=== PATIENT | female | born 2000 | race Caucasian/White ===

== ENCOUNTER 2020-09-20 07:10 | Inpatient (IN) | payer BC, OTHER ==
[2020-09-20] VITALS (42 sets, daily range): BP systolic 108–156; BP diastolic 55–87
[~2020-09-20] VITALS: Ht 177.8 cm; Wt 124.0 kg
--- NOTE | 2020-09-20 07:16 | NUR ---
BURTON CASON presented to unit via ambulatory from home, accompanied by s/o, for induction of labor. BURTON CASON weighed, gowned, voided, and to bed. EFHM and TOCO applied, VS taken. BURTON CASON oriented to bed controls, call light, TV, heat, and A/C controls.
[2020-09-20] MEDS ORDERED: D5 LR IV SOLUTION 1,000 ML IV SCH (07:48)
[2020-09-20] MEDS ORDERED: OXYTOCIN PRE-MIX DRIP 500 ML IV SCH ×2 (07:48→17:12)
--- NOTE | 2020-09-20 07:58 | History & Physical ---
History and Physical Date Seen by Provider: Sep 20, 2020 Time Seen by Provider: 07:54 this patient is a 20-year-old 1 white female with a due date of October 02, 2020. She was seen in clinic yesterday and found to have blood pressures of 135/95 this was a significant increase from her previous blood pressures she also had 1+ proteinuria. Patient was admitted today for labor induction due to preeclampsia/PIH. Patient denies rupture membranes or bleeding she is having occasional contractions on presentation. Her GBS culture was positive after 35 weeks gestation and she will be on prophylactic antibiotics during labor Allergies are none Medications are vitamins Medical social and surgical histories are per the antepartum record HEENT exam is normal Neck is supple no lymphadenopathy no thyromegaly Abdomen is gravid soft nontender nondistended Extremities show no clubbing or cyanosis. There is no Homans sign. There is some pretibial pitting edema. There is no Homans sign Pelvic exam in clinic yesterday showed a cervix 2 cm dilated 50 percent effaced and very soft mid to anterior position vertex presentation with a -1 station. This gives a Lopez score of 8 Repeat pelvic exam is pending Assessment and plan term at 38-2/7 weeks' gestation with preeclampsia/PIH. Patient is admitted now for labor induction. We anticipate a vaginal delivery but would be prepared for if needed. 38 weeks gestation with PIH/preeclampsia Allergies and Home Medications Allergies Coded Allergies: No Known Drug Allergies (Unverified , 09/20/20) Patient Home Medication List Home Medication List Reviewed: Yes ISIDRO GASPAR MD Sep 20, 2020 07:58
[2020-09-20] MEDS ORDERED: AMPICILLIN FOR IV USE 2,000 MG in WATER (STERILE) FOR INJECTION 14.8 ML IV ONE (08:00)
[2020-09-20] MEDS ORDERED: AMPICILLIN 2,000 MG/14.8 ML (IV USE) ONE (08:04)
[2020-09-20] MEDS ORDERED: WATER (STERILE) FOR INJECTION 20 ML ONE (08:04)
[2020-09-20 08:22] LABS: BASOPHILS % (AUTO) 0 % (0-10); EOSINOPHILS # (AUTO) 0.1 10^3/uL (0.0-0.3); EOSINOPHILS % (AUTO) 1 % (0-10); HEMATOCRIT 34 % (35-52); HEMOGLOBIN 11.3 g/dL (11.5-16.0); LYMPHOCYTES # (AUTO) 2.7 10^3/uL (1.0-4.0); LYMPHOCYTES % (AUTO) 25 % (12-44); MEAN CORPUSCULAR HEMOGLOBIN 30 pg (25-34); MEAN CORPUSCULAR HGB CONC 33 g/dL (32-36); MEAN CORPUSCULAR VOLUME 90 fL (80-99); MEAN PLATELET VOLUME 11.2 fL (9.0-12.2); MONOCYTES # (AUTO) 0.8 10^3/uL (0.0-1.0); MONOCYTES % (AUTO) 7 % (0-12); NEUTROPHILS # (AUTO) 7.4 10^3/uL (1.8-7.8); NEUTROPHILS % (AUTO) 67 % (42-75); PLATELET COUNT 228 10^3/uL (130-400)
[2020-09-20 08:33] LABS: ALANINE AMINOTRANSFERASE 6 U/L (0-55); ALBUMIN 3.4 GM/DL (3.2-4.5); ALKALINE PHOSPHATASE 95 U/L (40-136); BILIRUBIN,TOTAL 0.3 MG/DL (0.1-1.0); BUN/CREATININE RATIO 13; CALCIUM 8.8 MG/DL (8.5-10.1); CARBON DIOXIDE 18 MMOL/L (21-32); CHLORIDE 106 MMOL/L (98-107); CREATININE SERUM 0.64 MG/DL (0.60-1.30); GFR ESTIMATED > 60; GLUCOSE 85 MG/DL (70-105); POTASSIUM 3.7 MMOL/L (3.6-5.0); SODIUM 138 MMOL/L (135-145); TOTAL PROTEIN 6.3 GM/DL (6.4-8.2); URIC ACID 5.9 MG/DL (2.6-7.2)
[2020-09-20] MEDS ORDERED: FLU QUADRIvalent (3YOA+) 60 mcg/0.5 ml 2020-21 (AFLURIA) IM ONE (09:45)
--- NOTE | 2020-09-20 10:13 | NUR ---
UPDATED ON RECENT SVE. NO NEW ORDERS RECEIVED.
[2020-09-20] MEDS ORDERED: fentaNYL 2 mcg/ml BUPIVA 0.125 100 ML ONE (10:31)
[2020-09-20] MEDS ORDERED: BUPIVACAINE 0.25% 30 ML (SENSORCAINE) VIAL ONE (10:44)
[2020-09-20] MEDS ORDERED: LIDOCAINE PF 2% 5 ML (XYLOCAINE) VIAL ONE (10:44)
[2020-09-20] MEDS ORDERED: fentaNYL INJECTION 100 MCG/2 ML AMP ONE (10:44)
[2020-09-20] MEDS ORDERED: LACTATED RINGERS 1,000 ML IV ONE ×2 (11:39)
[2020-09-20] MEDS ORDERED: fentaNYL INJECTION 100 MCG/2 ML AMP INJ ONE (11:45)
[2020-09-20] MEDS ORDERED: ONDANSETRON 4 MG/2 ML (SDV) Z0FRAN IV PRN (11:45)
[2020-09-20] MEDS ORDERED: EPIDURAL (fentaNYL 2 MCG/ML BUPIVA 0.125%)100 ML BAG EPI PRN (11:45)
[2020-09-20] MEDS ORDERED: NALOXONE 0.4 MG/ML 1 ML (NARCAN) VIAL IV PRN (11:45)
[2020-09-20] MEDS ORDERED: AMPICILLIN FOR IV USE 1,000 MG in WATER (STERILE) FOR INJECTION 7.4 ML IV SCH (12:00)
[2020-09-20] MEDS ORDERED: WATER (STERILE) FOR INJECTION 10 ML ONE (12:01)
[2020-09-20] MEDS ORDERED: AMPICILLIN 1,000 MG VIAL (IV USE) ONE (12:01)
--- NOTE | 2020-09-20 13:36 | NUR ---
DR. GASPAR UPDATED ON RECENT SVE. NO NEW ORDERS RECEIVED.
[2020-09-20] MEDS ORDERED: LIDOCAINE/EPI 2% 1:200,00 (XYLOCAINE) 10 ML VIAL ONE ×2 (14:04)
--- NOTE | 2020-09-20 14:04 | NUR ---
DR. GASPAR NOTIFIED OF PT RECENT SVE. NO NEW ORDERS RECEIVED.
[2020-09-20] MEDS ORDERED: BENZOCAINE/MENTHOL (DERMOPLAST) 60 ML CAN TP ONE (16:42)
--- NOTE | 2020-09-20 16:50 | NUR ---
EPIDURAL CATHETER REMOVED. TIP INTACT.
--- NOTE | 2020-09-20 17:00 | NUR ---
PT UP TO BATHROOM AND VOIDING. +PERICARE AND LINENS CHANGED. PT TRANSFERRED FROM [id number] TO [id number] VIA WHEEL CHAIR IN STABLE CONDITION ACCOMPANIED BY THIS RN, FOB, AND . CALL LIGHT WITHIN REACH. NO FURTHER NEEDS AT THIS TIME.
[2020-09-20] MEDS ORDERED: TETANUS,DIPTH,PERTUSS P/F (BOOSTRIX) 0.5 ML VIAL IM ONE (17:15)
[2020-09-20] MEDS ORDERED: MEASLES,MUMPS,RUBELLA 1 EA INJ SC ONE (17:15)
[2020-09-20] MEDS ORDERED: ONDANSETRON 4 MG/2 ML (SDV) Z0FRAN IVP PRN (17:15)
[2020-09-20] MEDS ORDERED: BENZOCAINE/MENTHOL (DERMOPLAST) 60 ML CAN TP PRN (17:15)
[2020-09-20] MEDS ORDERED: oxyCODONE/APAP 5/325MG (PERCOCET 5) TABLET PO PRN (17:30)
[2020-09-20] MEDS: ACETAMINOPHEN 500 MG TAB (TYLENOL) PO PRN (20:20)
[2020-09-20] MEDS: DOCUSATE SODIUM 100 MG (COLACE) CAP PO SCH (20:20)
[2020-09-21 01:52] VITALS: BP 108/54
[2020-09-21] MEDS: ACETAMINOPHEN 500 MG TAB (TYLENOL) PO PRN ×3 (05:13→21:47)
[2020-09-21 05:15] VITALS: BP 141/91
--- NOTE | 2020-09-21 06:38 | Anesthesia-Regional Post-Op ---
Regional Patient Condition Mental Status: Alert, Oriented x3 Circulation: Same as Pre-Op Headache: Absent Sensation: Full Recovery Motor Block: Absent Post Op Complications Complications None Follow Up Care/Instructions Patient Instructions None needed. Anesthesia/Patient Condition Patient is doing well, no complaints, stable vital signs, no apparent adverse anesthesia problems. No complications reported per nursing. D/C home per [facility] Criteria: No JEFFERY BOLIVAR CRNA Sep 21, 2020 06:37
[2020-09-21 08:39] VITALS: BP 120/60
--- NOTE | 2020-09-21 10:09 | Progress Note ---
Standard Progress Note Progress Notes/Assess & Plan Date Seen by a Provider: Sep 21, 2020 Time Seen by a Provider: 10:08 Progress/Assessment & Plan this patient is without complaint. She is ambulating, voiding, tolerating oral intake well has good pain control Vital Signs Date Time Temp Pulse Resp B/P (MAP) Pulse Ox O2 Delivery O2 Flow Rate FiO2 09/21/20 08:39 36.5 80 18 120/60 (80) 98 Room Air 09/21/20 05:15 36.3 91 18 141/91 (108) 96 Room Air 09/21/20 01:52 36.2 87 18 108/54 (72) 96 Room Air 09/20/20 21:00 37.0 92 18 144/79 (100) 97 Room Air 09/20/20 16:24 112 18 121/61 (81) Room Air 09/20/20 16:09 37.0 121 18 142/79 (100) Room Air 09/20/20 15:54 97 18 140/75 (96) Room Air 09/20/20 15:39 104 18 150/69 (96) Room Air 09/20/20 15:24 103 18 152/79 (103) Room Air 09/20/20 15:09 113 18 142/71 (94) Room Air 09/20/20 14:54 105 18 145/80 (101) Room Air 09/20/20 14:25 90 18 154/81 (105) Room Air 09/20/20 14:10 93 18 147/83 (104) Room Air 09/20/20 13:40 74 18 108/55 (72) Room Air 09/20/20 13:23 36.5 81 18 135/60 (85) Room Air 09/20/20 13:10 79 18 151/66 (94) Room Air 09/20/20 12:57 80 18 148/70 (96) Room Air 09/20/20 12:40 81 18 145/81 (102) Room Air 09/20/20 12:25 73 18 130/73 (92) Room Air 09/20/20 12:06 72 18 127/70 (89) Non Rebreather 15.00 09/20/20 12:02 75 18 134/73 (93) Non Rebreather 15.00 09/20/20 11:48 69 18 137/63 (87) 98 Non Rebreather 15.00 09/20/20 11:43 90 18 147/74 (98) 98 Non Rebreather 15.00 09/20/20 11:39 84 18 143/74 (97) 98 Room Air 09/20/20 11:37 78 18 133/71 (91) 98 Room Air 09/20/20 11:33 88 18 130/62 (84) 98 Room Air 09/20/20 11:30 94 18 138/67 (90) 98 Room Air 09/20/20 11:27 80 18 130/69 (89) 98 Room Air 09/20/20 11:25 98 18 129/71 (90) 99 Room Air 09/20/20 11:21 87 18 129/74 (92) 99 Room Air 09/20/20 11:17 83 18 128/68 (88) 99 Room Air 09/20/20 11:13 105 18 131/76 (94) 99 Room Air 09/20/20 11:10 103 18 126/75 (92) 99 Room Air 09/20/20 11:06 103 18 156/86 (109) 99 Room Air 09/20/20 11:03 107 18 146/87 (106) 97 Room Air 09/20/20 11:00 100 18 145/86 (105) 97 Room Air 09/20/20 10:53 87 18 135/81 (99) 99 Room Air 09/20/20 10:51 107 18 134/86 (102) 99 Room Air 09/20/20 10:34 36.6 75 18 150/87 (108) Room Air 09/20/20 10:20 68 18 141/86 (104) Room Air I & O 09/21/20 07:00 Intake Total 1022.2 ml Balance 1022.2 ml Vital signs are stable. Patient is afebrile. Blood pressure seemed to be normalizing. the abdomen is benign. Fundus is firm below the umbilicus and nontender. Extremities show no clubbing cyanosis. There is no Homans sign. assessment and plan post day number 1 status post term spontaneous vaginal delivery at 38+ weeks gestation. Patient is doing well and will have routine convalescence care today and likely discharge home tomorrow Final Diagnosis 39 week spontaneous vaginal delivery ISIDRO GASPAR MD Sep 21, 2020 10:09
[2020-09-21] MEDS ORDERED: IBUP-1780 PO (10:11)
[2020-09-21] MEDS ORDERED: DCS100C PO (10:11)
[2020-09-21] MEDS ORDERED: OXYC1TAB87 PO (10:11)
--- NOTE | 2020-09-21 10:11 | Discharge Inst-Surgical ---
Discharge Inst-Surgical Depart Medication/Instructions New, Converted or Re-Newed RX: RX on Chart Consults/Follow Up Patient Instructions: as directed Orders & Referrals Follow Up Appt: Call to make follow up appt. for patient in 4 weeks. Activity Per routine post vaginal delivery instructions. Please call in RX to patient pharmacy. Diet as tolerated Patient may shower or tub bathe as desired. Activity Activity as Tolerated: No Diet Discharge Diet: No Restrictions ISIDRO GASPAR MD Sep 21, 2020 10:11
[2020-09-21 13:24] VITALS: BP 155/88
[2020-09-21] MEDS: IBUPROFEN 800 MG (MOTRIN) TAB PO SCH (16:41)
[2020-09-21 16:42] VITALS: BP 134/85
[2020-09-21 21:45] VITALS: BP 158/74
[2020-09-21] MEDS: DOCUSATE SODIUM 100 MG (COLACE) CAP PO SCH (21:54)
[2020-09-22] MEDS: IBUPROFEN 800 MG (MOTRIN) TAB PO SCH ×3 (00:31→08:08)
[2020-09-22 03:14] VITALS: BP 136/82
--- NOTE | 2020-09-22 07:51 | Progress Note ---
Standard Progress Note Progress Notes/Assess & Plan Date Seen by a Provider: Sep 22, 2020 Time Seen by a Provider: 07:49 Progress/Assessment & Plan this patient is without complaint. She is ambulating, voiding, tolerating oral intake well has good pain control Vital Signs Date Time Temp Pulse Resp B/P (MAP) Pulse Ox O2 Delivery O2 Flow Rate FiO2 09/21/20 08:39 36.5 80 18 120/60 (80) 98 Room Air 09/21/20 05:15 36.3 91 18 141/91 (108) 96 Room Air 09/21/20 01:52 36.2 87 18 108/54 (72) 96 Room Air 09/20/20 21:00 37.0 92 18 144/79 (100) 97 Room Air 09/20/20 16:24 112 18 121/61 (81) Room Air 09/20/20 16:09 37.0 121 18 142/79 (100) Room Air 09/20/20 15:54 97 18 140/75 (96) Room Air 09/20/20 15:39 104 18 150/69 (96) Room Air 09/20/20 15:24 103 18 152/79 (103) Room Air 09/20/20 15:09 113 18 142/71 (94) Room Air 09/20/20 14:54 105 18 145/80 (101) Room Air 09/20/20 14:25 90 18 154/81 (105) Room Air 09/20/20 14:10 93 18 147/83 (104) Room Air 09/20/20 13:40 74 18 108/55 (72) Room Air 09/20/20 13:23 36.5 81 18 135/60 (85) Room Air 09/20/20 13:10 79 18 151/66 (94) Room Air 09/20/20 12:57 80 18 148/70 (96) Room Air 09/20/20 12:40 81 18 145/81 (102) Room Air 09/20/20 12:25 73 18 130/73 (92) Room Air 09/20/20 12:06 72 18 127/70 (89) Non Rebreather 15.00 09/20/20 12:02 75 18 134/73 (93) Non Rebreather 15.00 09/20/20 11:48 69 18 137/63 (87) 98 Non Rebreather 15.00 09/20/20 11:43 90 18 147/74 (98) 98 Non Rebreather 15.00 09/20/20 11:39 84 18 143/74 (97) 98 Room Air 09/20/20 11:37 78 18 133/71 (91) 98 Room Air 09/20/20 11:33 88 18 130/62 (84) 98 Room Air 09/20/20 11:30 94 18 138/67 (90) 98 Room Air 09/20/20 11:27 80 18 130/69 (89) 98 Room Air 09/20/20 11:25 98 18 129/71 (90) 99 Room Air 09/20/20 11:21 87 18 129/74 (92) 99 Room Air 09/20/20 11:17 83 18 128/68 (88) 99 Room Air 09/20/20 11:13 105 18 131/76 (94) 99 Room Air 09/20/20 11:10 103 18 126/75 (92) 99 Room Air 09/20/20 11:06 103 18 156/86 (109) 99 Room Air 09/20/20 11:03 107 18 146/87 (106) 97 Room Air 09/20/20 11:00 100 18 145/86 (105) 97 Room Air 09/20/20 10:53 87 18 135/81 (99) 99 Room Air 09/20/20 10:51 107 18 134/86 (102) 99 Room Air 09/20/20 10:34 36.6 75 18 150/87 (108) Room Air 09/20/20 10:20 68 18 141/86 (104) Room Air I & O 09/21/20 07:00 Intake Total 1022.2 ml Balance 1022.2 ml Vital signs are stable. Patient is afebrile. Blood pressure seemed to be normalizing. the abdomen is benign. Fundus is firm below the umbilicus and nontender. Extremities show no clubbing cyanosis. There is no Homans sign. assessment and plan post day number 1 status post term spontaneous vaginal delivery at 38+ weeks gestation. Patient is doing well and will have routine convalescence care today and likely discharge home tomorrow September 22, 2020 Patient is without COMPLAINT. She is ambulating, voiding, tolerating oral intake well has good pain control. Patient is requesting discharge home. Vital Signs Date Time Temp Pulse Resp B/P (MAP) Pulse Ox O2 Delivery O2 Flow Rate FiO2 09/22/20 03:14 36.4 78 18 136/82 (100) Room Air 09/21/20 21:45 36.7 80 18 158/74 (102) Room Air 09/21/20 16:42 36.5 80 18 134/85 (101) 97 Room Air 09/21/20 13:24 36.6 85 18 155/88 (110) 98 Room Air 09/21/20 08:39 36.5 80 18 120/60 (80) 98 Room Air vital signs are stable. Patient is afebrile. Fundus is firm below the umbilicus and nontender. Extremities show no clubbing or cyanosis. There is no Homans sign. Assessment and plan day number 2 status post term spontaneous vaginal delivery at 38 weeks gestation. Patient is doing well and will be discharged home Final Diagnosis 38 week spontaneous vaginal delivery ISIDRO GASPAR MD Sep 22, 2020 07:51
[2020-09-22 08:05] VITALS: BP 132/82
[2020-09-22] MEDS: DOCUSATE SODIUM 100 MG (COLACE) CAP PO SCH (08:08)
--- NOTE | 2020-09-22 09:00 | NUR ---
Discharge instructions given to pt at this time. Printed RX place din red folder, Other RX called to preferred pharmacy. Pt denies questions. Pt and SO understand that they are not to leave until after DC instructions are given for . Pt understands she is no longer a pt.
--- NOTE | 2020-10-02 19:42 | OPERATIVE REPORT ---
DATE OF SERVICE: 09/20/2020 DELIVERY NOTE The patient delivered by term spontaneous vaginal delivery. A viable male with Apgars of 9 and 9 at 1 and 5 minutes respectively, weight pending. time of 1450 and a cord blood pH that is pending as well. The patient delivered over a left sulcus laceration under epidural analgesia. The infant was bulb suctioned on delivery of the head and again on completion of delivery. The umbilical cord when pulseless was doubly clamped, father cut the cord, the baby was passed to mom's abdomen. Cord bloods were obtained. The placenta delivered spontaneously Richardson. It was normal with a 3-vessel cord. The cervix, vagina, rectum, and perineum were examined and found intact, except for the small left sulcus laceration that was repaired with a single suture of 3-0 Vicryl Rapide in the usual manner under local analgesia. The patient tolerated the delivery and the repair well and remained in the LDR for recovery. The baby remained with the mom. Sponge and needle counts were correct. Blood loss was around 200 mL. Job ID: [id number] DocumentID: [id number] Dictated Date: 10/02/2020 10:16:57 Cyber Security Systems Engineer Date: 10/02/2020 19:41:38 Dictated By: ISIDRO GASPAR MD
== END 2020-09-22 13:20 | disposition home or self-care (01) | DRG 807 ==
LOC: LDRP 07:10
PROVIDERS: ADMIT Obstetrics & Gynecology; ATTEND Obstetrics & Gynecology
PROC: 10E0XZZ Delivery of Products of Conception, External Approach (ICD-10-PCS; principal; 2020-09-21)
PROC: 0UQGXZZ Repair Vagina, External Approach (ICD-10-PCS; 2020-09-21)
DX: O11.4 Pre-existing hypertension with pre-eclampsia, complicating childbirth (principal); Z37.0 Single live birth; Z3A.38 38 weeks gestation of pregnancy; O71.89 Other specified obstetric trauma
CPT/HCPCS: 36415; 80053; 82570; 83615; 84156; 84550; 85025; 86850; 86900; 86901; 88307; 90686

== ENCOUNTER → 2023-07-07 | Outpatient (CLI) | payer BC, OTHER ==
[~2023-07-07] MED LIST: DOCU-239 PO; IBUP-1780 PO; OXYC1TAB87 PO
--- NOTE | 2023-07-07 12:39 | Diagnostic Imaging Report ---
INDICATION: survey. TECHNIQUE: Multiple real-time grayscale images were obtained over the gravid uterus. COMPARISON: None FINDINGS: There is a single live fetus in a cephalic presentation. heart rate was recorded at 166 bpm. Placenta is anterior. No previa is detected. Amniotic fluid index is 12.1 cm. survey demonstrates kidneys, bladder and stomach to be unremarkable. brains unremarkable. There is a four-chamber heart. There is a three-vessel cord with normal insertion. spine is unremarkable. Cervical length is approximately 3.9 cm. Maternal adnexa are unremarkable. Biometrical measurements are as follows: Biparietal 4.5 cm, age 19 weeks 5 days. Head circumference 18.5 cm, age 20 weeks 6 days. Abdominal circumference 14.5 cm, age 19 weeks 6 days. Femur length 3.2 cm, age 20 weeks 0 days. Sonographic estimate age: 20 weeks 1 days. Sonographic estimated date of delivery: 11/23/2023. Estimated Weight: 326 gm (+/- 1 gm). LMP percentile: 45%. heart rate: 166 beats per minute. number: 1 of 1. IMPRESSION: Single live IUP 20 weeks 1 day gestational age. Estimated date of confinement sonographically is 11/23/2023. No complicating features are detected. Dictated by: Dictated on workstation # [id number]
== END ==
LOC: RAD 10:15
PROVIDERS: ATTEND Obstetrics & Gynecology
DX: Z36.89 Encounter for other specified antenatal screening (principal); Z3A.20 20 weeks gestation of pregnancy
CPT/HCPCS: 76805

== ENCOUNTER 2023-11-01 21:10 | Inpatient (IN) | payer OTHER ==
[~2023-11-01] VITALS: Ht 174.5 cm; Wt 124.6 kg
[2023-11-01 21:58] LABS: AMORPHOUS SEDIMENT,UR MOD AMOR PHOSPHATE /LPF; BACTERIA,URINE FEW /HPF; BILIRUBIN,URINE NEGATIVE (NEGATIVE); CLARITY,URINE CLEAR; COLOR,URINE YELLOW; GLUCOSE, URINE (UA) NEGATIVE (NEGATIVE); KETONES,URINE NEGATIVE (NEGATIVE); LEUKOCYTE ESTERASE ,URINE NEGATIVE (NEGATIVE); NITRITE,URINE NEGATIVE (NEGATIVE); PROTEIN,URINE NEGATIVE (NEGATIVE); SQUAMOUS EPITHELIAL CELL,UR >50 /HPF; WBC,URINE 0-2 /HPF
[2023-11-01 22:00] VITALS: BP 128/82
[2023-11-02] VITALS (44 sets, daily range): BP systolic 78–141; BP diastolic 47–90
[2023-11-02] MEDS ORDERED: LACTATED RINGERS 1,000 ML 500 ML IV PRN
[2023-11-02] MEDS ORDERED: D5 LR 1,000 ML IV SOLN 1,000 ML IV SCH
[2023-11-02] MEDS ORDERED: MINERAL OIL 30 ML UDC TOP PRN
[2023-11-02 00:24] LABS: BASOPHILS % (AUTO) 0 % (0-10); EOSINOPHILS # (AUTO) 0.1 10^3/uL (0.0-0.3); EOSINOPHILS % (AUTO) 0 % (0-10); HEMATOCRIT 31 % (35-52); HEMOGLOBIN 10.4 g/dL (11.5-16.0); LYMPHOCYTES # (AUTO) 3.6 10^3/uL (1.0-4.0); LYMPHOCYTES % (AUTO) 32 % (12-44); MEAN CORPUSCULAR HEMOGLOBIN 31 pg (25-34); MEAN CORPUSCULAR HGB CONC 34 g/dL (32-36); MEAN CORPUSCULAR VOLUME 91 fL (80-99); MEAN PLATELET VOLUME 11.1 fL (9.0-12.2); MONOCYTES # (AUTO) 0.9 10^3/uL (0.0-1.0); MONOCYTES % (AUTO) 8 % (0-12); NEUTROPHILS # (AUTO) 6.8 10^3/uL (1.8-7.8); NEUTROPHILS % (AUTO) 60 % (42-75); PLATELET COUNT 206 10^3/uL (130-400); WHITE BLOOD COUNT 11.4 10^3/uL (4.3-11.0)
[2023-11-02] MEDS ORDERED: DESV50TA8 PO (01:34)
[2023-11-02] MEDS ORDERED: ASPI-999 PO (01:34)
[2023-11-02] MEDS ORDERED: PREN-142 PO (01:36)
[2023-11-02] MEDS ORDERED: BUTORPHANOL INJ 2 MG/ML VIAL IV ONE (04:15)
[2023-11-02] MEDS ORDERED: BUTORPHANOL INJ 2 MG/ML VIAL ONE (04:18)
[2023-11-02] MEDS ORDERED: CATHETER FLUSH 10 ML SYR IV SCH ×2 (06:00→14:00)
[2023-11-02] MEDS ORDERED: fentaNYL 2 mcg/ml BUPIVA 0.125 100 ML ONE (06:10)
[2023-11-02] MEDS ORDERED: NALOXONE 0.4 MG/ML 1 ML VIAL IV PRN ×4 (06:30→11:00)
[2023-11-02] MEDS ORDERED: CATHETER FLUSH 10 ML SYR IV PRN (06:30)
[2023-11-02] MEDS ORDERED: LACTATED RINGERS 1,000 ML 1,000 ML IV ONE (06:30)
[2023-11-02] MEDS ORDERED: fentaNYL 2 mcg/ml BUPIVA 0.125 100 ML EPI SCH ×2 (06:30→07:45)
[2023-11-02] MEDS ORDERED: fentaNYL INJECTION 100 MCG/2 ML VIAL ONE (06:51)
--- NOTE | 2023-11-02 06:56 | History & Physical-OB ---
OB - Chief Complaint & HPI Date/Time Date of Admission: Date of Admission: Nov 01, 2023 at 23:43 Time Seen by a Provider: 06:30 Chief Complaint/History OB-Reason for Admission/Chief: Onset of Labor Hx : 3 Hx Para: 2 Expected Date of Delivery: Nov 24, 2023 Gestational Age in Weeks: 36 Gestational Age in Days: 5 Other reason for admission: 23 year old at 36w5d presents with contractions. complicated by obesity and history of pre-eclampsia in previous . Overnight pt progressed from 2cm to 6cm dilatation Allergies and Home Medications Allergies Coded Allergies: ketorolac (Verified Allergy, Mild, HOT/HEADACHE, 09/20/20) tetracycline (Verified Allergy, Mild, RASH, 09/20/20) Patient Home Medication List Home Medication List Reviewed: Yes Aspirin (Aspirin) 81 Mg Tab.chew, 81 MG PO, (Reported) Entered as Reported by: TRAVIS BRITT on 11/02/23133 Last Action: New Order Desvenlafaxine (Desvenlafaxine ER) 50 Mg Tab.er.24h, 50 MG PO, (Reported) Entered as Reported by: TRAVIS BRITT on 11/02/23133 Last Action: New Order Vit No.124/Iron/FA ( Vitamin Tablet) 27 Mg Iron-800 Mcg Tablet, 1 EACH PO, (Reported) Entered as Reported by: TRAVIS BRITT on 11/02/23135 Last Action: New Order Discontinued Medications Docusate Sodium (Dok) 100 Mg Capsule, 100 MG PO BID Discontinued Reason: No Longer Taking Prescribed by: ISIDRO VUONG on 09/21/20 1011 Last Action: Discontinued Ibuprofen (Ibuprofen) 800 Mg Tablet, 800 MG PO Q6H PRN for PAIN Discontinued Reason: No Longer Taking Prescribed by: ISIDRO VUONG on 09/21/20 1011 Last Action: Discontinued Oxycodone HCl/Acetaminophen (Percocet 5-325 mg Tablet) 1 Each Tablet, 1 TAB PO Q4H PRN for PAIN-MODERATE (5-7) Discontinued Reason: No Longer Taking Prescribed by: ISIDRO VUONG on 09/21/20 1011 Last Action: Discontinued OB - History Hx of Present Care: Yes Obstetrical Complications: Other (history of pre-eclampsia) Medical Complications: None Information Induced Hypertension: No Maternal Gestational Diabetes: No Hemorrhage: No Obstetrical History Hx : 3 Hx Para: 2 Hx Termination: No Delivery History Adverse Rxn to Tranfusion: No Patient Past Medical History denies Social History/Family History Alcohol Use: Denies Use Recreational Drug Use: No 2nd Hand Smoke Exposure: No Immunizations Influenza Vaccine Up-to-Date: Yes; Up-to-Date OB - Admission Exam Physical Exam Vitals: Vital Signs 11/02/23 06:17 Temp 36.4 Pulse 75 Resp 18 B/P (MAP) 122/71 (88) Pulse Ox 99 O2 Delivery Room Air Abdomen: Non tender Extremities: Normal Cervical Dilatation: 6cm Effacement: 75% Station: -2 Amniotic Fluid: Clear Heart Rate: 120's Accelerations: Accelerations Present Short Term Variability: Present Contractions on Admission: 6-10 Minutes Apart Intensity: Moderate Labs Laboratory Tests Test 11/01/23 21:30 11/02/23 00:10 Range/Units Urine Color YELLOW Urine Clarity CLEAR Urine pH 7.0 5-9 Urine Specific [place] 1.020 1.016-1.022 Urine Protein NEGATIVE NEGATIVE Urine Glucose (UA) NEGATIVE NEGATIVE Urine Ketones NEGATIVE NEGATIVE Urine Nitrite NEGATIVE NEGATIVE Urine Bilirubin NEGATIVE NEGATIVE Urine Urobilinogen 0.2 < = 1.0 MG/DL Urine Leukocyte Esterase NEGATIVE NEGATIVE Urine RBC (Auto) NEGATIVE NEGATIVE Urine RBC NONE /HPF Urine WBC 0-2 /HPF Urine Squamous Epithelial Cells >50 H /HPF Urine Crystals PRESENT H /LPF Urine Amorphous Sediment MOD [place]YTON PHOSPHATE H /LPF Urine Bacteria FEW H /HPF Urine Casts NONE /LPF Urine Mucus SMALL H /LPF Urine Culture Indicated NO White Blood Count 11.4 H 4.3-11.0 10^3/uL Red Blood Count 3.38 L 3.80-5.11 10^6/uL Hemoglobin 10.4 L 11.5-16.0 g/dL Hematocrit 31 L 35-52 % Mean Corpuscular Volume 91 80-99 fL Mean Corpuscular Hemoglobin 31 25-34 pg Mean Corpuscular Hemoglobin Concent 34 32-36 g/dL Red Cell Distribution Width 12.9 10.0-14.5 % Platelet Count 206 130-400 10^3/uL Mean Platelet Volume 11.1 9.0-12.2 fL Immature Granulocyte % (Auto) 0 % Neutrophils (%) (Auto) 60 42-75 % Lymphocytes (%) (Auto) 32 12-44 % Monocytes (%) (Auto) 8 0-12 % Eosinophils (%) (Auto) 0 0-10 % Basophils (%) (Auto) 0 0-10 % Neutrophils # (Auto) 6.8 1.8-7.8 10^3/uL Lymphocytes # (Auto) 3.6 1.0-4.0 10^3/uL Monocytes # (Auto) 0.9 0.0-1.0 10^3/uL Eosinophils # (Auto) 0.1 0.0-0.3 10^3/uL Basophils # (Auto) 0.0 0.0-0.1 10^3/uL Immature Granulocyte # (Auto) 0.0 0.0-0.1 10^3/uL OB - Assessment/Plan/Diagnosis Assessment Assessment: active labor Admission Dx IUP at 36+ weeks GBS neg Pre-term labor Admission Status: Inpatient Order (span 2 midnights) Reason for Inpatient Admission: Labor Plan Plan: Other (AROM with clear fluid) JONATHAN VASQUEZ DO Nov 02, 2023 06:56
[2023-11-02] MEDS ORDERED: diphenhydrAMINE INJ 50 MG/ML VIAL IV PRN (07:45)
[2023-11-02] MEDS ORDERED: ONDANSETRON INJECTION 4 MG/2 ML (SDV) IV PRN (07:45)
[2023-11-02] MEDS ORDERED: LACTATED RINGERS 1,000 ML 1,000 ML IV SCH (07:45)
[2023-11-02] MEDS ORDERED: OXYTOCIN DRIP PRE-MIX 500 ML IV SCH ×2 (07:45→11:00)
[2023-11-02] MEDS ORDERED: METOCLOPRAMIDE INJ 10 MG/2 ML IV PRN (07:45)
--- NOTE | 2023-11-02 10:53 | OB Labor & Delivery Record ---
L&D History Date of Service Date of Service: Nov 02, 2023 History Expected Date of Delivery: Nov 24, 2023 Gestational Age in Weeks: 36 Hx : 3 Hx Para: 2 Complications Events: Routine care Operative Indications (Cesarea: N/A-Vaginal Delivery Intrapartal Events: None L&D Stage1 Stage One Onset of Labor - Date: Nov 02, 2023 Monitors and Tracing Monitor Mode: External Heart Rate: 125 Monitor Decelerations: None Station: -2 Supervisor Sample Preparation Variability: Average (6-10) Short Term Variability: Present Presentation: Vertex Vital Signs VS - Last 72 Hours, by Label 11/01/23 11/02/23 11/02/23 11/02/23 22:00 01:15 02:15 03:15 Temp 36.5 36.4 Pulse 90 73 81 96 Resp 18 16 16 16 B/P (MAP) 128/82 119/58 (78) 117/56 (76) 99/57 (71) Pulse Ox 99 O2 Delivery Room Air Room Air Room Air Room Air 11/02/23 11/02/23 11/02/23 11/02/23 06:17 06:34 06:47 06:54 Temp 36.4 Pulse 75 76 82 80 Resp 18 B/P (MAP) 122/71 (88) 126/80 (95) 126/83 (97) 141/90 (107) Pulse Ox 99 99 O2 Delivery Room Air Room Air 11/02/23 11/02/23 11/02/23 11/02/23 06:59 07:03 07:08 07:12 Pulse 93 105 96 92 Resp 18 18 18 B/P (MAP) 132/77 (95) 136/83 (100) 124/69 (87) 125/74 (91) Pulse Ox 99 99 99 100 O2 Delivery Room Air Room Air Room Air Room Air 11/02/23 11/02/23 11/02/23 11/02/23 07:14 07:20 07:24 07:40 Pulse 95 97 103 98 Resp 18 18 18 18 B/P (MAP) 126/68 (87) 119/66 (83) 118/65 (82) 118/71 (87) Pulse Ox 100 97 97 97 O2 Delivery Room Air Room Air Room Air Room Air 11/02/23 11/02/23 11/02/23 11/02/23 07:54 08:10 08:25 08:39 Temp 35.8 Pulse 88 85 77 78 Resp 18 18 18 18 B/P (MAP) 113/71 (85) 114/73 (87) 123/76 (92) 112/71 (85) Pulse Ox 96 98 100 99 O2 Delivery Room Air Room Air Room Air Room Air Rupture of Membranes Spontaneous Ruture of Membrane: Yes Amniotic Membrane Rupture Time: 0549 Amniotic Membrane Fluid Desc.: Clear Vaginal Bleeding Description: Normal Show Induction/Anesthesia Epidural Cath Placement - Time: 07 Progress/Notes Patient admitted by Dr. Baig in labor at 36.6 with SROM. SHe progressed to 4-5 cm when an epidural was requested. She then had low dose pitocin augmentation and progressed to complete and + 2 station. L&D Stage2 Stage Two Stage II Date: Nov 02, 2023 Monitors and Tracing Monitor Mode: External Heart Rate: 125 Monitor Decelerations: None Supervisor Sample Preparation Variability: Average (6-10) Short Term Variability: Present Position: Right Occiput Anterior Presentation: Vertex Cord Descript/Complications Cord Vessel Description: 3 Vessels Delivery Type Infant Delivery Method: Spontaneous Vaginal Anterior Shoulder: Right Episiotomy/Perineal Laceration Laceraction(s)/Extensions: No Condition of Infant Delivery 1 minute Comment: 8 5 minute Comment: 9 Notes Live female infant weight 7lbs 6 oz Condition of Infant Condition of Infant: Living Exam: No Observed Abnormalities Resuscitation Resuscitation: N/A - Spontaneous Resp L&D Stage3 Stage Three Stage III Date: Nov 02, 2023 Pictocin Pitocin Administration mu/min: 2 Pitocin ml/hr: 2 Pitocin Administration Comment: 30 mu wide open after delivery of placenta Placenta Delivery Placenta Delivery: Spontaneous Delivery Summary Summary Estimated blood loss (mL): 200 Attending at delivery: Cassie Price DO Condition of Delivery Examined: Cervix Examined, Uterus Explored Post Hemorrhage: No Condition of Mother stable Condition of (s) stable CASSIE PRICE DO Nov 02, 2023 10:53
--- NOTE | 2023-11-02 10:54 | Discharge Inst-Women's Service ---
Discharge Inst-Women's Serv Depart Medication/Instructions New, Converted or Re-Newed RX: Transmitted to Pharmacy Final Diagnosis PPD 1 NVD Problems Reviewed?: Yes Consults/Follow Up Additional Follow Up: Yes Orders/Referrals Dr. Jean in 6 weeks Activity Activity: Activity as Tolerated Driving Instructions: No Driving for 1 Week NO SMOKING: NO SMOKING Nothing Inside Vagina: No Douching, No [place], No Tampons Diet Discharge Diet: No Restrictions Symptoms to Report to : Bleeding Excessive, Pain Increased, Fever Over 101 Degrees F, Vaginal Bleeding Increase, Questions/Concerns For Any Problems or Questions: Contact Your Physician CASSIE PRICE DO Nov 02, 2023 10:54
[2023-11-02] MEDS ORDERED: DOCU100C37 PO (10:56)
[2023-11-02] MEDS ORDERED: ACET-93 PO (10:56)
[2023-11-02] MEDS ORDERED: FERR325T24 PO (10:56)
[2023-11-02] MEDS ORDERED: IBUP-844 PO (10:56)
[2023-11-02] MEDS ORDERED: DIBUCAINE 1% OINTMENT 28 GM TUBE TOP PRN (11:00)
[2023-11-02] MEDS ORDERED: Tetanus/Diphtheria/Pertussis (Acell) ADULT Vaccine 0.5 ML IM ONE (11:00)
[2023-11-02] MEDS ORDERED: MEASLES, MUMPS, RUBELLA VACCINE (MMR) SQ ONE (11:00)
[2023-11-02] MEDS ORDERED: WITCH HAZEL(TUCKS) 40 EA JAR TOP PRN (11:00)
[2023-11-02] MEDS ORDERED: BENZOCAINE/MENTHOL (DERMOPLAST) 56 ML CAN TP PRN (11:00)
[2023-11-02] MEDS: ACETAMINOPHEN 500 MG TABLET PO SCH ×2 (13:58→19:49)
[2023-11-02] MEDS: IBUPROFEN 600 MG TABLET PO SCH ×2 (13:59→19:49)
[2023-11-02] MEDS ORDERED: RHO(D) IMMUNE GLOBULIN 300 MCG/2 ML SYRINGE IM/IV NR (14:00)
[2023-11-02] MEDS: DOCUSATE SODIUM 100 MG CAPSULE PO SCH (19:48)
[2023-11-03 01:47] VITALS: BP 118/75
[2023-11-03] MEDS: IBUPROFEN 600 MG TABLET PO SCH ×2 (01:47→08:48)
[2023-11-03] MEDS: ACETAMINOPHEN 500 MG TABLET PO SCH ×2 (01:47→08:49)
[2023-11-03 05:45] VITALS: BP 115/66
[2023-11-03 06:11] LABS: BASOPHILS % (AUTO) 0 % (0-10); EOSINOPHILS # (AUTO) 0.1 10^3/uL (0.0-0.3); EOSINOPHILS % (AUTO) 1 % (0-10); HEMATOCRIT 30 % (35-52); HEMOGLOBIN 10.1 g/dL (11.5-16.0); LYMPHOCYTES # (AUTO) 3.7 10^3/uL (1.0-4.0); LYMPHOCYTES % (AUTO) 35 % (12-44); MEAN CORPUSCULAR HEMOGLOBIN 31 pg (25-34); MEAN CORPUSCULAR HGB CONC 33 g/dL (32-36); MEAN CORPUSCULAR VOLUME 92 fL (80-99); MONOCYTES # (AUTO) 0.8 10^3/uL (0.0-1.0); MONOCYTES % (AUTO) 8 % (0-12); NEUTROPHILS % (AUTO) 56 % (42-75); PLATELET COUNT 166 10^3/uL (130-400); WHITE BLOOD COUNT 10.7 10^3/uL (4.3-11.0)
[2023-11-03] MEDS ORDERED: PRENATAL VITAMIN TABLET PO SCH (07:00)
--- NOTE | 2023-11-03 08:17 | Postpartum Progress Note ---
Note Note Day # 1 Subjective: Patient is without complaints. Ambulating, voiding. Tolerating a regular diet without nausea or vomiting. Normal lochia. Pain is well controlled with oral pain medications. Objective: Physical Exam: General - Alert and oriented, no apparent distress Abdomen - Soft, appropriately tender to palpation, non-distended, fundus firm at umbilicus Extremities - no edema, negative Danilo's bilaterally Assessment: PPD 1 NVD Acute blood loss anemia Plan: Routine care. Encourage breast feeding. Encourage ambulation. Ferrous sulfate supplementation. Plan for discharge today Vitals - Labs Vital Signs - I&O Vital Signs Date Time Temp Pulse Resp B/P (MAP) Pulse Ox O2 Delivery O2 Flow Rate FiO2 11/03/23 05:45 36.5 71 18 115/66 (82) 100 Room Air 11/03/23 01:47 36.5 69 18 118/75 (89) 97 Room Air 11/02/23 19:49 35.9 63 18 132/68 (89) 99 Room Air 11/02/23 15:48 36.4 73 18 122/77 (92) 97 Room Air 11/02/23 13:54 91 18 116/60 (78) Room Air 11/02/23 13:39 93 18 132/73 (92) Room Air 11/02/23 13:24 75 18 133/74 (93) Room Air 11/02/23 13:09 75 18 129/75 (93) Room Air 11/02/23 12:54 85 18 130/71 (90) Room Air 11/02/23 12:39 80 18 137/61 (86) Room Air 11/02/23 12:24 82 18 136/77 (96) Room Air 11/02/23 12:11 77 18 133/73 (93) Room Air 11/02/23 12:09 74 18 134/76 (95) Room Air 11/02/23 11:54 77 18 116/69 (85) Room Air 11/02/23 11:47 36.4 11/02/23 11:39 36.4 83 18 130/73 (92) Room Air 11/02/23 11:24 36.6 88 18 137/64 (88) Room Air 11/02/23 11:11 78 18 116/59 (78) Room Air 11/02/23 10:54 36.5 80 18 128/70 (89) Room Air 11/02/23 10:48 36.5 11/02/23 10:40 129 18 141/79 (99) Room Air 11/02/23 10:25 83 18 133/77 (95) 100 Room Air 11/02/23 10:15 36.1 11/02/23 10:10 73 18 95/51 (66) 97 Room Air 11/02/23 09:55 72 18 88/51 (63) 98 Room Air 11/02/23 09:40 76 18 79/47 (58) 98 Room Air 11/02/23 09:29 73 18 86/51 (63) 99 Room Air 11/02/23 09:26 69 18 78/53 (61) 98 Room Air 11/02/23 09:09 78 18 106/64 (78) 97 Room Air 11/02/23 08:39 78 18 112/71 (85) 99 Room Air 11/02/23 08:25 77 18 123/76 (92) 100 Room Air I & O 11/03/23 07:00 Intake Total 500 ml Balance 500 ml Labs Laboratory Tests 11/03/23 06:01: White Blood Count 10.7, Red Blood Count 3.30L, Hemoglobin 10.1L, Hematocrit 30L, Mean Corpuscular Volume 92, Mean Corpuscular Hemoglobin 31, Mean Corpuscular Hemoglobin Concent 33, Red Cell Distribution Width 12.9, Platelet Count 166, Mean Platelet Volume 11.0, Immature Granulocyte % (Auto) 0, Neutrophils (%) (Auto) 56, Lymphocytes (%) (Auto) 35, Monocytes (%) (Auto) 8, Eosinophils (%) (Auto) 1, Basophils (%) (Auto) 0, Neutrophils # (Auto) 6.0, Lymphocytes # (Auto) 3.7, Monocytes # (Auto) 0.8, Eosinophils # (Auto) 0.1, Basophils # (Auto) 0.0, Immature Granulocyte # (Auto) 0.0 CASSIE PRICE DO Nov 03, 2023 08:17
[2023-11-03 08:46] VITALS: BP 129/76
[2023-11-03] MEDS: DOCUSATE SODIUM 100 MG CAPSULE PO SCH (08:49)
[2023-11-03] MEDS ORDERED: FERROUS SULFATE 325 MG (IRON) TABLET PO SCH (09:00)
--- NOTE | 2023-11-03 10:29 | Anesthesia-Regional Post-Op ---
Regional Patient Condition Mental Status: Alert, Oriented x3 Circulation: Same as Pre-Op Headache: Absent Sensation: Full Recovery Motor Block: Absent Post Op Complications Complications None Follow Up Care/Instructions Patient Instructions None needed. Anesthesia/Patient Condition Patient is doing well, no complaints, stable vital signs, no apparent adverse anesthesia problems. No complications reported per nursing. RUTHIE QUESADA CRNA Nov 03, 2023 10:29
[2023-11-03 13:15] VITALS: BP 129/76
== END 2023-11-03 13:15 | disposition home or self-care (01) | DRG 806 ==
LOC: WSo 21:10 → LDRP 21:11 → WSo 23:42 → LDRP 23:43
PROVIDERS: ADMIT Obstetrics & Gynecology; ATTEND Obstetrics & Gynecology
PROC: 10E0XZZ Delivery of Products of Conception, External Approach (ICD-10-PCS; principal; 2023-11-02)
DX: O60.14X0 Preterm labor third trimester with preterm delivery third trimester, not applicable or unspecified (principal); D62 Acute posthemorrhagic anemia; Z37.0 Single live birth; Z3A.36 36 weeks gestation of pregnancy; O90.81 Anemia of the puerperium; O99.214 Obesity complicating childbirth
CPT/HCPCS: 36415; 81000; 83033; 85025; 86850; 86900; 86901; 99212